=== PATIENT | male | born 1985 | race Two or more races ===

== ENCOUNTER 2024-08-16 13:43 | Outpatient (AMB) | payer SELFPAY ==
[2024-08-16 13:50] VITALS: BP 135/81; PULSE 78; RESP 18; TEMP 36.8; O2SAT 98
--- NOTE | 2024-08-16 13:50 | ACNOTE_ITS ---
Vital Signs 08/16/24 13:50 Height 1.63 m Height Method Stated BP 135/81 H Blood Pressure Source Automatic Cuff Blood Pressure Location Right Upper Arm Position Sitting Respiration 18 Pulse 78 Pulse Source Monitor Temp 98.3 F Temp Source Oral Pulse Oximetry (%) 98 Oxygen Delivery Method Room Air Allergies/Meds Allergies & Medications Allergies No Known Allergies Allergy (Verified 08/23/24 13:27) Medication Reconciliation tobramycin 0.3 % eye ointment 1 applic Both eyes Q6HR #3.5 grams 08/16/24 [Rx Confirmed 08/23/24] diclofenac sodium 0.1 % eye drops 1 drp Both eyes QID #5 mL 08/23/24 [Rx] MA Intake Visit Data Collection New Patient or Established: New Patient (never been to [facility]) Seen by Clinical Staff ONLY (RN/MA): No Pain Present Currently: Yes Pain Location: Head Pain scale:: 6 Senior Enlisted Advisor Required: Yes PCP or OBGYN visit in last 3 months: No Do You Feel Safe at Home: Yes Authorities Contacted: N/A Smoking Status Smoking Status: Never smoker Immunization / Flu Flu Vaccine in the Last 12 Months: No Flu Vaccine Exclusion Criteria: Refused by Patient Past Medical History Social History SMOKING STATUS: Smoking status: Never smoker ALCOHOL: Alcohol Intake: Current (Occasional) History of Present Illness HPI Narrative 39 year old male patient with no significant PMHx presented to [facility] after he was referred here for concern of bird flu- H5N1, patient only reports symptoms of conjuctival erythema, discharge, and eye pain that started in his right eye initially on Friday night -2 days prior to visit. 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 Review of Systems Review of Systems Systems Reviewed: All systems reviewed, normal except as documented Eyes Eyes: Denies blind spots, Denies blurry vision, Denies change in vision, Denies decreased night vision, Denies diplopia, Reports eye discharge, Denies dry eyes, Denies exophthalmos, Denies floaters, Reports irritation, Denies loss of peripheral vision, Denies loss of vision, Denies other visual disturbances, Reports eye pain, Reports photophobia, Denies requires corrective lenses, Denies seeing flashes, Denies spots in vision and Denies tunnel vision Neurologic Neurologic: Denies loss of vision Results General: well developed, well nourished, laying in bed, not in acute distress, answering questions appropriately, making appropriate eye contact HEENT: Normocephalic, atraumatic, moist oral mucosa, normal dentition, tenderness, erythema and discharge of eyes bilaterally, more prevalent in Right eye, peripheral vision, EOM intact, PERRLA. Cardiac: Regular rate and rhythm, normal S1/S2, no murmurs. Lungs: Clear to auscultation with no wheezings or crackles, normal respiratory effort and rate. Abdomen: Soft, nontender, nondistended, positive bowel sounds in all quadrants. No guarding or rebound tenderness. Neuro: Alert and oriented to name and date of and place. CN II- XII intact, no focal motor deficit noted, BUE/BLE motor function and sensation intact and equal. Extremities: Normal to inspection, no edema, no cyanosis Psych: Normal mood and affect. Assessment & Plan Diagnosis / Problem List (1) Redness and discharge of eye: Status: Acute (2) Acute conjunctivitis of both eyes: Status: Acute (3) Influenza A (H5N1): Status: Acute Plan 39 year old male patient with no significant PMHx presented to [facility] after he was referred here for concern of bird flu- H5N1, patient only reports symptoms of conjuctival erythema, discharge, and eye pain that started in his right eye initially on Friday night -2 days prior to visit. 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 #Influenza rule out. #Acute conjuctivitis Concern for H5N1 influenza. Conjunctival/ Nasal- Oropharyngeal/ and Nasopharyngeal swabs collected. F/U serology results. Patient instructed to follow hand hygiene, continue to wear a mask/ home stay/ and isolation at home. Patient started on Oseltamavir bid for 5 days prophylactically. Patient started on Tobramycin oint, and Levofloxacin po for bacterial conjunctiv itis in light of significant exam findings and non resolving symptoms. Patient instructed to seek immediate help if symptoms worsen. Patient instructed to follow up on results, scheduled a f/u appointment for following friday. Plan of care discussed with attending Dr. Guerrero. Manuel Dai, PGY-3 Additional Assessment Internal Medicine Attending Note: Case discussed with and agree with note and management plan of Resident Physician as per Resident's Note above. Issues of concern for present visit are as follows: Patient seen for screening for H5N1 influenza. Main symptom is conjunctivitis. No respiratory symptoms. Specimens collected as needed for testing. Patient will be started on tobramycin and levofloxacin for what appears to be more so bacterial conjunctivitis. We will go ahead and prescribe Tamiflu for the patient to start, but if testing for influenza is negative, we will discontinue this. Follow-up in 1 week to reassess conjunctivitis. Stephan Guerrero MD Office Procedures [facility] Level of Care Nursing/Assessment Patient Status: Initial/New Patient Nursing Assessment/Reassessment: Medication Reconciliation, Update PMH in EMR and Vital Signs Coordination of Care: Complex Care and Chronic Disease 1-5, Consent,records obtained, informed consent, Education Simp Pt/Fam and Staff clarify orders Miscellaneous Interventions: Culture Specimen Collectection (bird flu swab collection) New Patient Charge New Patient Point Assignment: [id number] New Patient Point Charge: AV[employer]ATION SAF[employer] EQUIPMENT TECHNICIAN Level 3 ([id number]) Physician Billing New Patient New Patient: E/M Level 3-CPT 23292
== END 2024-08-16 14:11 | disposition home or self-care (01) ==
PROVIDERS: Supervising Provider Internal Medicine; Visit Provider Student in an Organized Health Care Education/Training Program
DX: H10.33 Unspecified acute conjunctivitis, bilateral (principal); Z11.59 Encounter for screening for other viral diseases
CPT/HCPCS: 99203; G0463

== ENCOUNTER → 2024-08-16 | Outpatient (CLI) | payer SELFPAY ==
[2024-08-18 11:41] LABS: Misc Send Out* See Sep Rpt
[2024-08-18 11:45] LABS: Misc Send Out* See Sep Rpt
[2024-08-18 11:45] LABS: Misc Send Out* See Sep Rpt
== END | disposition home or self-care (01) ==
PROVIDERS: Referring Provider Internal Medicine; Visit Provider Internal Medicine
DX: J09.X2 Influenza due to identified novel influenza A virus with other respiratory manifestations (principal)

== ENCOUNTER 2024-08-23 13:29 | Outpatient (AMB) | payer SELFPAY ==
[2024-08-23 13:26] VITALS: BP 120/77; PULSE 81; RESP 19; TEMP 36.7; O2SAT 97; BMI 28.8
--- NOTE | 2024-08-23 13:26 | ACNOTE_ITS ---
Vital Signs 08/23/24 13:26 Height 1.63 m Height Method Stated Weight 76.43 kg Weight Measurement Method Standing Scale BMI 28.8 BP 120/77 Blood Pressure Source Automatic Cuff Blood Pressure Location Left Upper Arm Position Sitting Respiration 19 Pulse 81 Pulse Source Monitor Temp 98.1 F Temp Source Oral Pulse Oximetry (%) 97 Oxygen Delivery Method Room Air Allergies/Meds Allergies & Medications Allergies No Known Allergies Allergy (Verified 08/23/24 13:27) Medication Reconciliation tobramycin 0.3 % eye ointment 1 applic Both eyes Q6HR #3.5 grams 08/16/24 [Rx Confirmed 08/23/24] diclofenac sodium 0.1 % eye drops 1 drp Both eyes QID #5 mL 08/23/24 [Rx] MA Intake Visit Data Collection New Patient or Established: Established Patient (seen at [facility] within 3 years) Seen by Clinical Staff ONLY (RN/MA): No Pain Present Currently: No Pain scale:: 0 Pain Scale Used: [place]/Numerical PCP or OBGYN visit in last 3 months: Yes Do You Feel Safe at Home: Yes Authorities Contacted: N/A Smoking Status Smoking Status: Never smoker Immunization / Flu Flu Vaccine in the Last 12 Months: No Flu Vaccine Exclusion Criteria: No Exclusion Criteria Past Medical History Social History SMOKING STATUS: Smoking status: Never smoker ALCOHOL: Alcohol Intake: Current (Occasional) OCCUPATION: Current occupation: [employer] History of Present Illness HPI Narrative 39 year old male patient with no significant PMHx presented to [facility] for a follow up visit after he was seen for concern of H5N1 and severe bilateral conjunctivitis. Patient reports significant improvement, no longer reports pus drainage, eye pain, but states that he has sensitivity to light which is bothersome and makes it extremely difficult for him to drive at night or be in a bright room. He denies any other symptoms. Review of Systems Review of Systems Systems Reviewed: All systems reviewed, normal except as documented Objective/Exam Narrative Physical exam: General: well developed, well nourished, not in acute distress, answering questions appropriately, making appropriate eye contact, sitting comfortably in chair. HEENT: Normocephalic, atraumatic, moist oral mucosa, normal dentition, erythema of right eyes, negative for tenderness, or discharge, Left eye no longer has erythema or discharge, central/peripheral vision wnl bilaterally, EOM intact, PERRLA. Cardiac: Regular rate and rhythm, normal S1/S2, no murmurs. Lungs: Clear to auscultation with no wheezings or crackles, normal respiratory effort and rate. Abdomen: Soft, nontender, nondistended, positive bowel sounds in all quadrants. No guarding or rebound tenderness. Neuro: Alert and oriented to name and date of and place. CN II- XII intact, no focal motor deficit noted, BUE/BLE motor function and sensation intact and equal. Extremities: Normal to inspection, no edema, no cyanosis Psych: Normal mood and affect. Assessment & Plan Diagnosis / Problem List (1) Inflammation of right eye: Status: Acute Plan: Assurance given to patient that as long as he noticed improvement that it's normal for erythema to persists a little longer. Advised patient to continue Tobramycin eye drops. Started patient on Diclofenac eye drops. Follow up in a week if no resolution. Patient informed to seek immediate help if pain starts in eyes again or if v ision changes occur, patient understands given instructions. (2) Acute bacterial conjunctivitis of right eye: Status: Acute Plan: Continue Tobramycin eye drops. Started patient on Diclofenac eye drops. Follow up in a week if no resolution. Patient informed to seek immediate help if pain starts in eyes again or if vision changes occur, patient understands given instructions. Plan 39 year old male patient with no significant PMHx presented to [facility] for a follow up visit after he was seen for concern of H5N1 and severe bilateral conjunctivitis. Patient reports significant improvement, no longer reports pus drainage, eye pain, but states that he has sensitivity to light which is bothersome and makes it extremely difficult for him to drive at night or be in a bright room. He denies any other symptoms. #Right eye bacterial conjunctivitis. #Left eye bacterial conjunctivitis--Resolved. Resolution in left eye, right eye remains inflammed. Erythema improved in right eye but not resolved. Patient reports significant sensitivity to light making it dangerous for him to drive/ operate machinery at night. Explained to patient that erythema may persist for a few days to a week but should improve. Advised patient to continue Tobramycin eye drops. Started patient on Diclofenac eye drops. Follow up in a week if no resolution. Patient informed to seek immediate help if pain starts in eyes again or if vision changes occur, patient understands given instructions. #H5N1 ruled out. All three swab samples negative for H5N1. Patient's plan of care discussed with attending Dr. Cesar Dai, PGY-3 Additional Assessment Internal Medicine Attending Note: Case discussed with and agree with note and management plan of Resident Physician as per Resident's Note above. Issues of concern for present visit are as follows: Follow-up visit. Improvement in conjunctivitis. Testing for H5N1 was reported as negative after 2 days, patient discontinued Tamiflu. Has completed antibiotics. Still complaining of some light sensitivity and residual redness. Will add nonsteroidal anti-inflammatory eyedrop for now. If symptoms continue, will need to see ophthalmology. Otherwise doing well. Stephan Guerrero MD Office Procedures [facility] Level of Care Nursing/Assessment Patient Status: Established Patient Nursing Assessment/Reassessment: Medication Reconciliation, Update PMH in EMR and Vital Signs Coordination of Care: Complex Care and Chronic Disease 1-5, Education Complex Pt/Fam, Results/Orders obtained and Staff clarify orders Established Patient Charge Established Patient Point Assignment: 90 Established Patient Point Charge: EP Level 3 (80-115) Physician Billing Established Patient Established Patient: E/M Level 3-CPT [id number]
== END 2024-08-23 14:04 | disposition home or self-care (01) ==
PROVIDERS: Supervising Provider Internal Medicine; Visit Provider Student in an Organized Health Care Education/Training Program
DX: H10.31 Unspecified acute conjunctivitis, right eye (principal)
CPT/HCPCS: 99213; G0463